=== PATIENT | male | born 1970 | race Hispanic/Latino ===

== ENCOUNTER 2017-11-22 23:39 | Emergency (ER) | payer SELFPAY ==
[2017-11-22 23:57] VITALS: BP 132/77; PULSE 78; RESP 18; TEMP 98.2; O2SAT 99
--- NOTE | 2017-11-23 00:21 | ED PDOC ---
HPI: Skin/Bite Injury Time Seen by Provider: 11/22/17 23:57 Chief Complaint (Nursing): Abnormal Skin Integrity History Per: Patient History/Exam Limitations: no limitations Onset/Duration Of Symptoms: Days Additional Complaint(s): Patient presenting with rash and itching to bilateral arms for 2 days after cutting down a tree, states that he is allergic to that particular tree he believes. No difficulty breathing. Took a 24-hour allergy pill this AM but can 't remember the name. Past Medical History Reviewed: Historical Data, Nursing Documentation, Vital Signs Vital Signs: Last Vital Signs Temp 98.2 F 11/22/17 23:54 Pulse 78 11/22/17 23:54 Resp 18 11/22/17 23:54 BP 132/77 11/22/17 23:54 Pulse Ox 99 11/22/17 23:54 - Family History Family History: States: Unknown Family Hx - Home Medications Home Medications: Ambulatory Orders Medication Instructions Recorded DiphenhydrAMINE [Benadryl] 50 mg PO Q8 PRN #30 cap 11/23/17 Prednisone [Deltasone] 40 mg PO DAILY 3 Days #6 tablet 11/23/17 - Allergies Allergies/Adverse Reactions: Allergies Allergy/AdvReac Type Severity Reaction Status Date / Time No Known Allergies Allergy Verified 11/22/17 23:54 Review of Systems ROS Statement: Except As Marked, All Systems Reviewed And Found Negative Skin: Positive for: Rash Physical Exam - Reviewed Nursing Documentation Reviewed: Yes Vital Signs Reviewed: Yes - Physical Exam Appears: Positive for: Well, Non-toxic, No Acute Distress Head Exam: Positive for: ATRAUMATIC, NORMAL INSPECTION, NORMOCEPHALIC Skin: Positive for: Rash (Urticarial raised rash in blotches to bilateral upper arms) - ECG O2 Sat by Pulse Oximetry: 99 Medical Decision Making Medical Decision Making: Patient presenting with urticarial rash --Rash indicative of contact dermatitis --Patient very well appearing, not concerned for anaphylaxis/airway involvement --Will prescribe steroid and benadryl --Advised patient to examine rash in AM for improvement --[place] given Disposition - Clinical Impression Clinical Impression: Allergic dermatitis - Disposition Referrals: [facility] [Outside] Disposition: Routine/Home Disposition Time: 00:23 Condition: GOOD Prescriptions: DiphenhydrAMINE [Benadryl] 50 mg PO Q8 PRN #30 cap PRN Reason: Itching / Pruritus Prednisone [Deltasone] 40 mg PO DAILY 3 Days #6 tablet Instructions: Contact Dermatitis (DC) Forms: [employer] (South Korean)
== END 2017-11-23 00:29 | disposition home or self-care (01) ==
LOC: H.ER 23:39
DX: L23.9 Allergic contact dermatitis, unspecified cause (principal)

== ENCOUNTER 2017-11-27 16:08 | Emergency (ER) | payer SELFPAY ==
[2017-11-27 16:24] VITALS: BP 129/73; PULSE 90; RESP 18; TEMP 98.9; O2SAT 97
[2017-11-27] MEDS ORDERED: Famotidine 40 MG/5 ML PO STA (16:46)
--- NOTE | 2017-11-27 16:50 | ED PDOC ---
HPI: General Adult Time Seen by Provider: 11/27/17 16:23 Chief Complaint (Nursing): Abnormal Skin Integrity Chief Complaint (Provider): Abnormal Skin Integrity History Per: Patient History/Exam Limitations: no limitations Onset/Duration Of Symptoms: Days (x7) Current Symptoms Are (Timing): Still Present Additional Complaint(s): Estefania Flores is a 47 year old male with no past medical history who is presenting to the ED with rash and itching to bilateral arms for 1 week after cutting down a tree. Patient denies difficulty breathing or facial swelling. He was seen is this ED 4 days ago for the same complaint and persistence of symptoms prompted repeat ED evaluation. Patient states he stopped using the prescribed medications from his prior visit because he saw no improvement. PMD: none provided Past Medical History Reviewed: Historical Data, Nursing Documentation, Vital Signs Vital Signs: Last Vital Signs Temp 98.9 F 11/27/17 16:22 Pulse 90 11/27/17 16:22 Resp 18 11/27/17 16:22 BP 129/73 11/27/17 16:22 Pulse Ox 97 11/27/17 16:22 - Medical History PMH: No Chronic Diseases - Surgical History Surgical History: No Surg Hx - Family History Family History: States: Unknown Family Hx - Social History Current smoker - smoking cessation education provided: No Alcohol: Social - Home Medications Home Medications: Ambulatory Orders Medication Instructions Recorded DiphenhydrAMINE [Benadryl] 50 mg PO Q8 PRN #30 cap 11/23/17 RX: Prednisone [Deltasone] 40 mg PO DAILY 3 Days #6 tablet 11/23/17 Calamine/Zinc Oxide [Calamine 1 applic TOP BID PRN #1 bottle 11/27/17 Lotion] Methylprednisolone [Medrol Dose 4 mg PO DAILY #21 mg 11/27/17 Pack (21 tabs)] hydrOXYzine HCl [Atarax] 25 mg PO QID PRN #20 tab 11/27/17 - Allergies Allergies/Adverse Reactions: Allergies Allergy/AdvReac Type Severity Reaction Status Date / Time bee venom protein (honey bee) Allergy RASH Verified 11/27/17 16:22 Review of Systems ROS Statement: Except As Marked, All Systems Reviewed And Found Negative Respiratory: Negative for: Other (difficulty breathing) Skin: Positive for: Rash Physical Exam - Reviewed Nursing Documentation Reviewed: Yes Vital Signs Reviewed: Yes - Physical Exam Comments: GENERAL: Patient is awake, alert, oriented x3. Resting comfortably, in no acute distress. SKIN: (+) Vesicular, erythematous rashes to bilateral upper extremities with excoriations. Some lesions have crusting present. Some lesions in linear arrangements, others in clusters. Otherwise (-) evidence of cellulitis (-) tenderness HENT: (-) conjunctival injection, (-) chemosis. Oropharynx: clear (-) tongue or lip swelling, (-) tonsillar exudates, (-) erythema. Airway: patent (-) stridor, (-) hoarseness. Mucous membranes moist. Nares: Patent (-) rhinorrhea. NECK: Supple, FROM CARDIOVASCULAR: Normal rate and rhythm CHEST: (-) rales, (-) wheezing, (-) dyspnea, (-) stridor. Breath sounds equal bilaterally. Respirations even and nonlabored, speaking in full sentences. ABDOMEN: Soft. (-) tenderness, (-) distention, (-) guarding - ECG O2 Sat by Pulse Oximetry: 97 (RA) Pulse Ox Interpretation: Normal Medical Decision Making Medical Decision Making: Time: 16:45 Impression: Poison Jaki Dermatitis Plan: --Benadryl 50 mg PO (Not driving) --Pepcid 40 mg PO --Solu-Medrol 125 mg IM 1745 On re-evaluation, patient reports improvement of symptoms. On exam, patient remains AAOx3, in no acute distress. Lungs clear to auscultation, cardiac RRR, repeat neuro exam shows no focal findings. Vitals stable. Lab/Diagnostic results d/w the patient in great detail. Diagnosis of poison jaki dermatitis d/w the patient. Based on history, exam and diagnostic results, plan will be for outpatient follow up. Patient instructed to follow-up with pmd / referral provided / the clinic in 1- 2 days without fail. Advised to take medication as prescribed. Return to the emergency room at any time for any new or worsening symptoms. Patient states he fully agrees with and understands discharge instructions. States that he agrees with the plan and disposition. Verbalized and repeated discharge instructions and plan. I have given the patient opportunity to ask any additional questions. Scribe Attestation: Documented by Suze Draper, acting as a scribe for Mae Amin PA-C. Provider Scribe Attestation: All medical record entries made by the Scribe were at my direction and personally dictated by me. I have reviewed the chart and agree that the record accurately reflects my personal performance of the history, physical exam, medical decision making, and the department course for this patient. I have also personally directed, reviewed, and agree with the discharge instructions and disposition. Disposition - Clinical Impression Clinical Impression: Poison jaki dermatitis, Generalized pruritus - Patient ED Disposition Is Patient to be Admitted: No Counseled Patient/Family Regarding: Studies Performed, Diagnosis, Need For Followup, Rx Given - Disposition Referrals: [facility] [Outside] Disposition: Routine/Home Disposition Time: 17:50 Condition: STABLE Additional Instructions: The emergency medical care you received today was directed at your acute symptoms. If you were prescribed any medication, please fill it and take as directed. It may take several days for your symptoms to resolve. Return to the Emergency Department if your symptoms worsen, do not improve, or if you have any other problems. Please contact your doctor in 2 days for re-evaluation and follow up / or call one of the physicians/clinics you have been referred to that are listed on the Patient Visit Information form that is included in your discharge packet. Bring any paperwork you were given at discharge with you along with any medications you are taking to your follow up visit. Our treatment cannot replace ongoing medical care by a primary care provider (PCP) outside of the emergency department. Prescriptions: Calamine/Zinc Oxide [Calamine Lotion] 1 applic TOP BID PRN #1 bottle PRN Reason: Itching / Pruritus hydrOXYzine HCl [Atarax] 25 mg PO QID PRN #20 tab PRN Reason: Itching / Pruritus Methylprednisolone [Medrol Dose Pack (21 tabs)] 4 mg PO DAILY #21 mg Instructions: Poison Jaki, Itchy Skin Forms: [employer] (Kiswahili) Print Language: LITHUANIAN - POA Present On Arrival: None
== END 2017-11-27 18:03 | disposition home or self-care (01) ==
LOC: H.ER 16:08
DX: L23.7 Allergic contact dermatitis due to plants, except food (principal); L29.9 Pruritus, unspecified
CPT/HCPCS: 96372; 99283; J2930